=== PATIENT | male | born 1935 | race Caucasian/White ===

== ENCOUNTER → 2023-07-24 14:21 | Outpatient (REF) | payer OTHER, SELFPAY | LOC: HWRAD 14:21 | PROVIDERS: ATTENDING PHYSICIAN Nurse Practitioner Family | DX: J06.9 Acute upper respiratory infection, unspecified (principal) | CPT/HCPCS: 71046 ==

== ENCOUNTER 2023-09-24 16:42 | Inpatient (IN) | payer OTHER, SELFPAY ==
[2023-09-24 13:43] VITALS: BP 123/56; BMI 24.9
[2023-09-24 14:32] LABS: % Basophils 0.3 % (0-2); % Immature Granulocytes 0.5 % (0-0.5); % Lymphocytes 15.8 % (20.5-51.1); % Monocytes 7.7 % (1.7-9.3); % Neutrophils 74.7 % (42.2-75.2); Absolute Eosinophils 0.1 10^3/uL (0-0.7); Absolute Immature Granulocytes 0.1 10^3/uL (0-0.05); Absolute Lymphocytes 1.7 10^3/uL (1.2-3.4); Absolute Monocytes 0.9 10^3/uL (0.1-0.6); Absolute Neutrophils 8.3 10^3/uL (1.4-6.5); Hematocrit 33.5 % (39.0-52.0); Hemoglobin 10.9 g/dL (13.0-18.0); Mean Corp Hgb Conc. 32.5 g/dL (33.0-37.0); Mean Corpuscular Volume 83.1 fL (80.0-94.0); Mean Platelet Volume 9.5 fL (7.4-10.4); Nucleated Red Blood Cells % 0 % (-); Platelet Count 239 10^3/uL (130-400); Red Blood Cell Count 4.03 10^6/uL (4.70-6.10); Red Cell Dist. Width 16.4 % (11.5-14.5)
[2023-09-24 14:47] LABS: ALT (SGPT) 12 U/L (0-50); AST (SGOT) 16 U/L (17-59); Albumin 3.9 g/dl (3.5-5.0); Alkaline Phosphatase 69 U/L (38-126); Blood Urea Nitrogen 19 mg/dl (9-20); Calcium 8.8 mg/dl (8.4-10.2); Carbon Dioxide 25 mmol/L (22-30); Chloride 99 mmol/L (98-107); Estimated Creatinine Clearance 79 ml/min; Glucose 208 mg/dl (70-99); Potassium 4.3 mmol/L (3.5-5.1); Sodium 136 mmol/L (135-145); Total Bilirubin 0.9 mg/dl (0.2-1.3); Total Protein 6.3 g/dl (6.3-8.2); eGFR > 60.00
[2023-09-24 14:52] LABS: COVID-19 Antigen Negative (Negative)
[2023-09-24 14:53] LABS: NT-proBNP 1080 pg/ml
[2023-09-24 15:00] VITALS: BP 107/92
--- NOTE | 2023-09-24 15:25 | ED.GENMED ---
History of Present Illness
General
Chief Complaint: Breathing Problem
Source: patient, ambulance crew and [facility]
Exam Limitations: none
Time Seen by Provider: 09/24/23 15:21
Nursing documentation reviewed up to this point in time: agreed with
History of Present Illness
History of Present Illness:
Patient to ED with complaint of cough, SOB for the past few days. Today staff reports pulse ox 86%RA. No fever/chills. Placed on 2L NC by ems, pulse ox increased to 94%. Denies any cp/pressure. Reports thick mucous. Eatin/drinking/sleeping
normally.
Past History
Past History
ED Past Medical History: CAD, Cancer (Lung cancer 1997, skin cancer), COPD, HTN, Hypercholesterolemia, Hypothyroidism, Other (BPH, gout, nephrolithiasis, vitamin D deficiency, rosacea, urinary tract infection) and Other (Right internal carotid
artery stenosis mild left internal carotid artery stenosis 70%; hard of hearing)
ED Past Surgical History: Appendectomy (Age 25), Cardiac (TAVR December 2021), Orthopedic (Right rotator cuff repair) and Other (Right lobectomy with radiation 1997)
Social History
Tobacco: Former smoker
Alcohol: None
Drug: None
Personal:
Living: with family
Employment: Retired
Family History
Family History: Other (Reviewed and noncontributory)
Review of Systems
Review of Systems
Allergies reviewed?: Yes
All Other Systems: ROS reviewed and negative except as documented in HPI and ROS
Constitutional: Reports no symptoms
EENT: Reports no symptoms
Respiratory: Reports cough and trouble breathing
Cardiac: Reports no symptoms
ABD/GI: Reports no symptoms
: Reports no symptoms
Musculoskeletal: Reports no symptoms
Skin: Reports no symptoms
Neurological: Reports weakness
Psychiatric: Reports no symptoms
Phy Exam
General Physical Exam
General Presentation: mild distress
General age: appears stated age
General Skin: warm and dry
General Habitus: normal
General Mental: alert
Cardiovascular Exam
Cardiovascular Exam: regular rate/rhythm
Pulmonary Exam
Pulmonary Exam: chest non tender
Cough: coarse cough
Breath Sounds: Absent breath sounds: right upper and right lower
Gastrointestinal Exam
Gastrointestinal Exam: normal bowel sounds, non tender, soft and no organomegaly
Neurological Exam
Neurological Exam: alert, oriented x3 and CN II-XII intact
Musculoskeletal Exam
Musculoskeletal Exam: full ROM and neuro vasc intact
Skin Exam
Skin Exam: normal color, warm/dry and no rash
Psychiatric Exam
Psychiatric Exam: normal mood/affect
Scores
Heart Failure Risk
Heart Failure Risk Score: Not Applicable
Course
Orders/Labs/Results
Orders:
Orders
09/24/23 13:41
CR Chest - 2 Views Urgent
Comment:
Reason For Exam: shortness of breath
09/24/23 13:49
Comprehensive Metabolic Panel Urgent
NT-proBNP Urgent
09/24/23 13:51
COVID-19 Antigen Urgent
Source: Nasal Swab
Complete Blood Count/With Diff Urgent
Influenza A+B Rapid Molecular Urgent
BROCK Source: Nasal Swab
Specimen Description:
09/24/23 Dinner
2000 calorie (17 carb) Diabetic
At Your Request: Limited, Supervisor Carton [employer] Can Supply Required
Does patient need a safe tray?: No
09/24/23 15:46
Cefepime HCl [Maxipime] 2,000 mg IV NOW STA
09/24/23 16:07
Guaifenesin [Mucinex] 600 mg .ROUTE .STK-MED ONE
09/24/23 16:08
Guaifenesin [Mucinex] 600 mg PO NOW STA
09/24/23 16:24
Admit/Transfer Patient As Directed
Co-Sign Provider:
Level of Care: Inpatient admission
Assign to:: Medical/Surgical
Physician / Group: anabel
Diagnosis: sepsis pneumonia
Reason for Hospitalization: sepsis pneumonia
Expected length of stay greater than two midnights?: Yes
ELOS- Estimated Length of Stay in days: 2
I certify the patient meets the requirements for IP care: Yes
Code Status As Directed
Resuscitation Status: Full Code
09/24/23 16:27
Respiratory Culture/Gram Stain Urgent
BROCK Source: Sputum
Specimen Description:
09/24/23 17:08
0.9% Sodium Chloride 1000 ml [Nss] 1,000 ml IV 100 mls/hr
Acetaminophen [Tylenol] 650 mg PO Q4HPRN PRN
Dextrose 50%-Water [Dextrose 50% Syringe] 12.5 grams IV [id number] PRN
Docusate Sodium [Colace] 100 mg PO BIDPRN PRN
Glucagon [GlucaGen] 1 mg IM PRN PRN
Insulin Aspart Corrective Low [Novolog Flexpen-Low Resistance] See Protocol SC AC
Ipratropium/Albuterol Sulfate [Duoneb] 3 ml INH R Q4HPRN PRN
METFORMIN HCl [Glucophage] 850 mg PO BID@0800,1700
Melatonin 5 mg PO HSPRN PRN
Sennosides [Senokot] 17.2 mg PO DAILYPRN PRN
09/24/23 17:08
Activity As Directed
Activity Level: As Tolerated
Bedside Glucose Monitoring As Directed
Frequency: AC&HS
Additional Instructions:: Change to q6h if pt on TPN, tube feeding or not eating
Bladder Scan As Directed
Follow Bladder Retention/Intermittent Cath Algorithm?: Yes
PRN if no void in __ hours: 6
Frequency: Per Retention Algorithm
If Bladder Scan Result >: 400
then:: Straight cath
Straight Cath As Directed
Frequency: Per Retention Algorithm
Additional Instructions: straight cath as needed per acute urinary retention algorithm for 24 hrs
Additional Instructions: for bladder scan greater than 400 mL
Vital Signs As Directed
Frequency: Per unit guidelines
DX Deep Vein Thrombosis Video Routine
09/24/23 18:00
Azithromycin 500 mg/250 ml [Zithromax Infusion] 500 mg in 250 ml IV Q24H
09/24/23 20:00
Guaifenesin [Mucinex] 1,200 mg PO Q12
Heparin 5,000 units SC Q12
09/24/23 22:00
Atorvastatin [Lipitor] 10 mg PO HS
CefTRIAXone [Rocephin] 1,000 mg IV Q24H
Melatonin 5 mg PO HS
Trazodone [Desyrel] 50 mg PO HS
09/25/23 06:00
Complete Blood Count/With Diff IN AM
Comprehensive Metabolic Panel IN AM
Glycohemoglobin (HgbA1c) IN AM
Levothyroxine [Synthroid] 25 mcg PO DAILY @ 0600
09/25/23 08:00
Aspirin Low Dose EC [Aspir Low (Enteric Coated)] 81 mg PO DAILY
Cetirizine HCl [Zyrtec] 10 mg PO DAILY
Cholecalciferol (Vitamin D3) [VITAMIN D3 (cholecalciferol)] 50 mcg PO DAILY
Cyanocobalamin [Vitamin B-12] 1,000 mcg PO DAILY
Finasteride [Proscar] 5 mg PO DAILY
NIFEdipine EXTENDED RELEASE [Procardia Xl (Extended Release)] 30 mg PO DAILY
Pantoprazole [Protonix] 40 mg PO DAILY
Tamsulosin [Flomax] 0.4 mg PO DAILY
Abnormal Lab Results
09/24/23 09/24/23
13:49 13:51
WBC 11.0 H 10^3/uL
(4.8-10.8)
RBC 4.03 L 10^6/uL
(4.70-6.10)
Hgb 10.9 L g/dL
(13.0-18.0)
Hct 33.5 L %
(39.0-52.0)
MCHC 32.5 L g/dL
(33.0-37.0)
RDW 16.4 H %
(11.5-14.5)
Abs Immat Gran (auto) 0.1 H 10^3/uL
(0-0.05)
Absolute Neuts (auto) 8.3 H 10^3/uL
(1.4-6.5)
Absolute Monos (auto) 0.9 H 10^3/uL
(0.1-0.6)
Lymphocytes % 15.8 L %
(20.5-51.1)
Glucose 208 H mg/dl
(70-99)
AST 16 L U/L
(17-59)
09/24/23 13:51
09/24/23 13:49
Vital Signs
Initial and Last Documented VS:
Initial Vital Signs
Temp Pulse Resp BP Pulse Ox
97.8 F 111 20 123/56 92
09/24/23 13:43 09/24/23 13:43 09/24/23 13:43 09/24/23 13:43 09/24/23 13:43
Last Documented Vital Signs
Temp Pulse Resp BP Pulse Ox
97.3 F 99 16 132/70 96
09/24/23 17:36 09/24/23 22:55 09/24/23 22:55 09/24/23 17:36 09/24/23 22:55
*Radiology
Radiology exam reviewed: radiology read reviewed
*Pulse Oximetry
Patient hypoxic: yes
*Critical Care Note
Total Time (30-74mins, 75-104mins- exclusive of procedures): Not Applicable
Update Note
Update Note:
Patient to ED with complaint of cough, thick mucous, difficulty breathing for the past 2-3 days. Denies fever. CXR: Opacity within the right mid and lower lung diallo. Pneumonia vs atelectass vs lung carcinom. Pulse ox holding at 93% on 2L. Will
treat for pneumonia -symptomatic x 2-3 days, admit to hospitaist
ED Attending Note
-
Portions of this chart may have been created with voice recognition software.� Occasional wrong word or��sound alike� substitutions may have occurred due to the inherent limitations of voice recognition software.
Discharge Plan
Departure
Patient Disposition: Admit
Date of Disposition: 09/24/23
Time of Disposition: 15:49
Presentation/result/management discussed w/ accepting MD/DO: Hospitalist
Condition: Fair
Covid-19: Not Applicable
Discharge Problem:
Pneumonia
Interventions
Interventions:
*Risk Screen - Suicide Last Done: 09/24/23 13:43
*General Assessment Last Done: 09/24/23 13:43
*Neglect/Abuse Screening Last Done: 09/24/23 13:43
ED- Fall Risk Assessment Last Done: 09/24/23 13:43
*ED COVID-19 Vaccine History Last Done: 09/24/23 13:43
*Nursing Disposition Last Done: 09/24/23 16:51
ED- Cardiac Assessment Last Done: 09/24/23 13:43
ED- Pulmonary Assessment Last Done: 09/24/23 13:43
Discharge Date and Time
Discharge Date/Time: 09/24/23 17:06
[2023-09-24 16:00] VITALS: BP 119/63
[2023-09-24] MEDS: MUCINEX 600 MG PO (16:10)
[2023-09-24] MEDS: MAXIPIME 2000 MG IV (16:13)
--- NOTE | 2023-09-24 16:28 | HPS.HSE ---
Family Physician
-
Family Physician: Asaf Montes
Chief Complaint
-
cough, SOB
History of Present Illness
88-year-old male past medical history of prior CVA, B12 deficiency, moderate aortic stenosis s/p TAVR, CAD, hypertension, diabetes, hyperlipidemia, lung cancer status post right lobectomy, prostate cancer, GERD, insomnia, hypothyroidism, chronic
urinary retention presenting from [facility] for cough with thick mucus, shortness of breath for the past few days. Today staff noted pulse ox of 86% on room air. No fevers or chills. He was placed on 2 L of oxygen. Denies any chest pain or
pressure. Denies any nausea or vomiting or diarrhea. He has chronic lower extremity particularly of left foot which is not new.
Patient states he quit smoking 30 years ago and smoked a pack of cigarettes per day for 25 years prior to that. He denies alcohol use.
Medical History
Past Medical History
Past Medical History: Reports Other (prior CVA, B12 deficiency, moderate aortic stenosis s/p TAVR, CAD, hypertension, diabetes, hyperlipidemia, lung cancer status post right lobectomy, prostate cancer, GERD, insomnia, hypothyroidism, chronic
urinary retention)
Past Surgical History: Reports Other ( Appendectomy (Age 25), Cardiac (TAVR December 2021), Orthopedic (Right rotator cuff repair) and Other (Right lobectomy with radiation 1997))
Social History
Tobacco: Former Smoker
Alcohol: None
Drug: None
Family History
Family History: Not pertinent
Allergies / Home Medications
Allergies reflects when Allergies were last updated in [facility].
Home Medications with original date entered in [facility]
Allergy/Medication List:
Allergies
Allergy/AdvReac Type Severity Reaction Status Date / Time
finasteride Allergy Intermediate Unknown Verified 05/29/22 16:22
Home Medications
aspirin 81 mg tablet,delayed release 81 mg PO DAILY #30 tabs 06/12/22
atorvastatin 10 mg tablet 10 mg PO HS #30 tabs 06/12/22
cetirizine 10 mg tablet 10 mg PO DAILY #30 tabs 06/12/22
finasteride 5 mg tablet 5 mg PO DAILY #30 tabs 06/12/22
metformin 850 mg tablet 850 mg PO BID@0800,1700 #60 tabs 06/12/22
pantoprazole 40 mg tablet,delayed release 40 mg PO DAILY #30 tabs 06/12/22
tamsulosin 0.4 mg capsule 0.4 mg PO DAILY #30 caps 06/12/22
acetaminophen 325 mg tablet 650 mg PO Q4HPRN PRN mild pain 09/24/23
albuterol sulfate 90 mcg/actuation aerosol inhaler (Proventil HFA) 1 puff inhalation R Q4HPRN PRN sob 09/24/23
cholecalciferol (vitamin D3) 50 mcg (2,000 unit) tablet 50 mcg PO DAILY 09/24/23
cyanocobalamin (vitamin B-12) 1,000 mcg tablet 1,000 mcg PO DAILY 09/24/23
docusate sodium 100 mg capsule 100 mg PO BID PRN constipation 09/24/23
fluticasone propionate 50 mcg/actuation nasal spray,suspension 2 spray intranasal DAILY PRN mucus build up 09/24/23
guaifenesin 600 mg tablet, extended release 12 hr 600 mg PO BID 09/24/23
guaifenesin 600 mg tablet, extended release 12 hr 600 mg PO Q12H PRN acute cough 09/24/23
levothyroxine 25 mcg tablet 25 mcg PO DAILY 09/24/23
melatonin 5 mg tablet 5 mg PO HS 09/24/23
melatonin 5 mg tablet 5 mg PO HS PRN insomnia 09/24/23
nifedipine 30 mg tablet,extended release 24 hr 30 mg PO DAILY 09/24/23
sennosides 8.6 mg tablet (senna) 17.2 mg PO DAILYPRN PRN constipation 09/24/23
trazodone 50 mg tablet 50 mg PO HS 09/24/23
Review of Systems
-
History Source: Patient
A 12 point ROS was completed and negative except as noted: Yes
Constitutional: Reports No Symptoms
EENT: Reports No Symptoms
Respiratory: Reports See HPI
Cardiac: Reports No Symptoms
Abdomen/GI: Reports No Symptoms
: Reports No Symptoms
Musculoskeletal: Reports No Symptoms
Skin: Reports No Symptoms
Neurological: Reports No Symptoms
Endocrine: Reports No Symptoms
Hematologic/Lymphatic: Reports No Symptoms
Psych: Reports No Symptoms
Physical Exam
Vital Signs
Vital Signs
Temp Pulse Resp BP Pulse Ox
97.8 F 100 19 107/92 91
09/24/23 13:43 09/24/23 15:30 09/24/23 15:30 09/24/23 15:00 09/24/23 15:30
Physical Exam
General: Well Developed, Well Nourished and No Apparent Distress
HEENT: NormoCephalic, Moist mucous membranes and Atraumatic
Respiratory: Rhonchi (bilaterally)
Cardiac: S1/S2 and Regular Rhythm; No Murmur or Rub
GI: Soft, Non Tender, Non Distended and Normal Bowel Sounds; No Organomegaly
Rectal: Deferred by Provider
Musculoskeletal: No Clubbing, No Cyanosis and No Edema
Skin: No Rash
Neuro: Nonfocal/grossly intact
Laboratory Results
-
09/24/23 13:51
09/24/23 13:49
Laboratory Results
Total Bilirubin 0.9 mg/dl (0.2-1.3) 09/24/23 13:49
AST 16 U/L (17-59) L 09/24/23 13:49
ALT 12 U/L (0-50) 09/24/23 13:49
Alkaline Phosphatase 69 U/L (38-126) 09/24/23 13:49
Data Reviewed
-
Lab Data: Labs Reviewed by me
Old Records: Reviewed
Impression/Plan
-
IMPRESSION:
PLAN:
# Sepsis (leukocytosis, tachycardia, tachypnea) secondary to community-acquired pneumonia
-Coarse rhonchi bilaterally on examination
-COVID, influenza negative
-Chest x-ray shows diffuse volume loss of right hemithorax, hazy opacity in the right mid and lower lung zone which represent pneumonia/atelectasis,/underlying lung carcinoma, calcified pleural plaque of the right lung base consistent with
asbestosis related pleural disease
-IV fluids
-Check sputum culture
-Check blood cultures
-Ceftriaxone/azithromycin
-DuoNebs every 6 hours as needed
-Consider steroids if no improvement with IV antibiotics
-Guaifenesin
Former smoker
Aortic stenosis status post TAVR
Coronary artery disease
-Continue aspirin
Essential hypertension
-Continue nifedipine
Type 2 diabetes
-Continue metformin
-Insulin sliding scale
Hyperlipidemia
-Continue statin
Lung cancer status post right lobectomy/chemotherapy
Prostate cancer
Chronic urinary retention
-Continue finasteride, tamsulosin
-Bladder scan protocol
-Monitor for voiding issues
History of prior CVA
B12 deficiency
-Continue B12
Chronic normocytic anemia
-Hemoglobin trending down since May 2022
-Continue to monitor
GERD
-Continue Protonix
Hypothyroidism
-Continue levothyroxine
Insomnia
-Continue melatonin, trazodone
Full code
DVT prophylaxis�heparin
Diabetic diet
[2023-09-24 17:36] VITALS: BP 132/70
[2023-09-24 17:37] VITALS: BMI 24.2
[2023-09-24] MEDS: NSS 1000 IV (17:42)
[2023-09-24] MEDS: GLUCOPHAGE 850 MG PO (18:04)
[2023-09-24] MEDS: ZITHROMAX INFUSION 250 IV (18:04)
[2023-09-24 18:26] LABS: Glucose - Point of Care 170 mg/dl (70-99)
--- NOTE | 2023-09-24 18:34 | PTCARENOTE ---
Patient states, 'I have trouble swallowing. I eat soft food with no lumps or I start coughing.' Patient was seeing a speech therapist in the past and would like to resume speech therapy, due to recent aspiration at his daughters house. Speech eval
ordered per nursing protocol.
[2023-09-24] MEDS: NOVOLOG FLEXPEN-LOW RESISTANCE SC (19:16)
[2023-09-24 21:14] LABS: Glucose - Point of Care 136 mg/dl (70-99)
[2023-09-24] MEDS: HEPARIN 5000 UNITS SC (21:49)
[2023-09-24] MEDS: LIPITOR 10 MG PO (21:49)
[2023-09-24] MEDS: MUCINEX 1200 MG PO (21:49)
[2023-09-24] MEDS: DESYREL 50 MG PO (21:49)
[2023-09-24] MEDS: MELATONIN 5 MG PO (21:50)
[2023-09-24] MEDS: ROCEPHIN 1000 MG IV (21:50)
[2023-09-24] MEDS: STERILE WATER FOR INJECTION 10 ML IV (21:50)
[2023-09-24] MEDS: DUONEB 3 ML INH (22:48)
[2023-09-24 23:03] VITALS: BP 132/62
[2023-09-25] MEDS: NSS 1000 IV (04:12)
[2023-09-25] MEDS: DUONEB 3 ML INH ×2 (05:43→08:27)
[2023-09-25 06:00] VITALS: BMI 25.8
[2023-09-25] MEDS: SYNTHROID 25 MCG PO (06:31)
[2023-09-25 07:37] LABS: % Basophils 0.3 % (0-2); % Eosinophils 0.9 % (0-6); % Immature Granulocytes 0.6 % (0-0.5); % Lymphocytes 13.2 % (20.5-51.1); % Monocytes 9.7 % (1.7-9.3); % Neutrophils 75.3 % (42.2-75.2); Absolute Eosinophils 0.1 10^3/uL (0-0.7); Absolute Lymphocytes 0.9 10^3/uL (1.2-3.4); Absolute Monocytes 0.6 10^3/uL (0.1-0.6); Hematocrit 27.4 % (39.0-52.0); Hemoglobin 9.1 g/dL (13.0-18.0); Mean Corp Hgb Conc. 33.2 g/dL (33.0-37.0); Mean Corpuscular Hgb 27.2 pg (27.0-31.0); Mean Corpuscular Volume 81.8 fL (80.0-94.0); Mean Platelet Volume 9.3 fL (7.4-10.4); Nucleated Red Blood Cells % 0 % (-); Platelet Count 181 10^3/uL (130-400); Red Blood Cell Count 3.35 10^6/uL (4.70-6.10); Red Cell Dist. Width 16.4 % (11.5-14.5); White Blood Cell Count 6.6 10^3/uL (4.8-10.8)
[2023-09-25 07:41] LABS: Glucose - Point of Care 142 mg/dl (70-99)
--- NOTE | 2023-09-25 07:41 | PTCARENOTE ---
Pt aaox3,forgetful & anxious at times. on bedalarm.On oxygen at 4lit, pt MARSH.pulse oxy 93-98.TELE MARKETING EXECUTIVE strike on machine operator made aware of it.Ok to stop IV fluids as pt pt has wheezing,crackles,unable to bring cough up.Pt was teached how to use Incentive spirometer
,sputum cup at bedside. Pt voided in the bathroom with 1 person assist. PRN breathing treatment was given to pt as needed. Plan of care continued.Pt continued on aspiration precautions. call denis in reach.No new orders at this time.
--- NOTE | 2023-09-25 07:42 | W.PN.HOSP.TC ---
Addendum entered and electronically signed by Helen Walters MD 09/25/23 14:59:
I personally performed a history and physical exam of the patient and discussed management with the resident. I reviewed the resident's note and agree with the documented findings and plan of care HPI/CC except change in documentation
88-year-old male with hypoxia from [facility].
CVS: S1-S2 normal
Chest: coarse BS, Gurgling sound on upper airways.
Abdomen: Soft, NT / Bowel sounds present
Extremities: edema more on the left
SCOURING TRAIN OPERATOR: Non focal exam
# Sepsis secondary to pneumonia
COVID influenza negative
Chest x-ray reviewed by me- with opacity in the right mid and lower lung zone
Placed on Zithromax and ceftriaxone
Speech evaluation -patient is at high risk for aspiration.
Check blood cultures and sputum cultures
DuoNebs
Mucolytic's
Spoke to patient's daughter who is a nurse here. Reviewed aspiration risk. She is aware that he is aspirating but would like him to have soft diet. Her goal is to keep comfortable as well as he can enjoy his life. She is okay with him being a
DNR. Aware that he is going to recurrently aspirate and implications of that.
# LE edema- USS
# Anemia-check iron and B12
# Aortic stenosis status post TAVR
# Coronary artery disease-continue aspirin, statin
# Hypertension-continue nifedipine
# Type 2 diabetes-continue metformin, Accu-Cheks and sliding scale
# Hyperlipidemia-continue statin
# Lung cancer with history of right lobectomy and chemotherapy
# History of prostate cancer
Chronic urinary retention on tamsulosin and finasteride
Bladder scan as needed and monitor for any voiding problems
# History of CVA-Right [place]
# B12 deficiency-continue replacement
# Hypothyroidism (Synthroid
# Insomnia-continue melatonin and trazodone
# GERD-continue PPI
# Chronic RBBB
# DVT prophylaxis-heparin subcutaneous
# CODE STATUS was addressed with daughter and patient made a DNR.
Goal is to treat aspiration pneumonia and get patient better. Daughter requested speech therapy to teach patient's techniques for better eating and swallow to prevent aspiration.
D/W Speech therapist.
Original Note:
Today's Communication/Plan
-
Continue antibiotics
IV fluids
Assessment / Plan
Assessment / Plan
# Sepsis (leukocytosis, tachycardia, tachypnea) secondary to community-acquired pneumonia
-Coarse rhonchi bilaterally on examination
-COVID, influenza negative
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
asbestosis related pleural disease
-Continue IV fluids
-Check sputum culture when possible
-Blood cultures pending
-Ceftriaxone/azithromycin
-DuoNebs every 6 hours as needed
-Consider steroids if no improvement with IV antibiotics
-Guaifenesin
-Acapella device
Dysphagia:
Speech therapy evaluation, aspiration risk
-Will get video swallow study
-Add metronidazole for possible aspiration pneumonia
-Sputum culture
Chronic lower extremity edema
Left> right
-Left lower extremity Doppler
Former smoker
Aortic stenosis status post TAVR
Coronary artery disease
-Continue aspirin
Essential hypertension
-Continue nifedipine
Type 2 diabetes
-Continue metformin
-Insulin sliding scale
Hyperlipidemia
-Continue statin
Lung cancer
status post right lobectomy/chemotherapy
Prostate cancer
Chronic urinary retention
-Continue finasteride, tamsulosin
-Bladder scan protocol
-Monitor for voiding issues
History of prior CVA
B12 deficiency
-Continue B12
Chronic normocytic anemia
-Hemoglobin trending down since May 2022
-Continue to monitor
GERD
-Continue Protonix
Hypothyroidism
-Continue levothyroxine
Insomnia
-Continue melatonin, trazodone
Full code
DVT prophylaxis�heparin
Diabetic diet
Anticipated Discharge: 24 - 48 hours
Subjective/Interval History
-
Date of Service: September 25, 2023
Significant cough. Difficulty clearing airway.
Objective Data
-
Labs:
Laboratory Results
09/25/23
07:11
WBC Pending
Hgb Pending
Hct Pending
Plt Count Pending
Sodium Pending
Potassium Pending
Chloride Pending
Carbon Dioxide Pending
BUN Pending
Creatinine Pending
Glucose Pending
Calcium Pending
Total Bilirubin Pending
AST Pending
ALT Pending
Alkaline Phosphatase Pending
Vital Signs:
Vital Signs
Temp Pulse Resp BP Pulse Ox
98.2 F 90 18 132/62 95
09/24/23 23:03 09/25/23 05:46 09/25/23 05:46 09/24/23 23:03 09/25/23 05:46
Review of Systems
-
History Source: Patient and Family
Constitutional: Denies Fever
EENT: Reports Other (dysphagia)
Respiratory: Reports Cough and Other (Difficulty clearing mucus)
Cardiac: Denies Chest Pain, Palpitations or Syncope
Abdomen/GI: Denies Abdominal Pain, Nausea, Vomiting, Diarrhea or Constipated
Musculoskeletal: Reports Edema (Bilateral lower extremity); Denies Muscle Pain
Neuro: Denies Dizzy or Headache
Physical Exam
-
General: Well Developed and Other (Uncomfortable, appears stated age)
HEENT: Normocephalic, Atraumatic, Moist Mucous Membranes and Other; Negative Thrush, Anicteric or Pharyngeal Erythema
Respiratory: Rhonchi (Severe diffuse rhonchi, bilaterally)
Cardiac: Other (Unable to assess due to severity of rhonchi)
GI: Soft, Nontender and Nondistended
Musculoskeletal: No Clubbing, No Cyanosis, Edema, Right Lower Extrem (Left > right) and Edema, Left Lower Extrem
Skin: Warm and Dry; Negative Rash, Ulcers or Lesions
Neuro: Awake and Alert
Psych: Calm
[2023-09-25 07:58] VITALS: BP 138/72
[2023-09-25 08:18] LABS: ALT (SGPT) < 10 U/L (0-50); AST (SGOT) 14 U/L (17-59); Albumin 2.9 g/dl (3.5-5.0); Alkaline Phosphatase 57 U/L (38-126); Blood Urea Nitrogen 16 mg/dl (9-20); Calcium 7.9 mg/dl (8.4-10.2); Carbon Dioxide 26 mmol/L (22-30); Chloride 103 mmol/L (98-107); Estimated Creatinine Clearance 90 ml/min; Glucose 135 mg/dl (70-99); Potassium 4.1 mmol/L (3.5-5.1); Sodium 134 mmol/L (135-145); Total Bilirubin 0.6 mg/dl (0.2-1.3); eGFR > 60.00
[2023-09-25 08:46] LABS: Glycohemoglobin (HgbA1c) 5.6 % (4.0-5.6)
[2023-09-25] MEDS: NOVOLOG FLEXPEN-LOW RESISTANCE SC (09:42)
[2023-09-25] MEDS: PROCARDIA XL (EXTENDED RELEASE) 30 MG PO (09:43)
[2023-09-25] MEDS: MUCINEX 1200 MG PO ×2 (09:43→21:32)
[2023-09-25] MEDS: FLOMAX 0.400000000000000022 MG PO (09:43)
[2023-09-25] MEDS: HEPARIN 5000 UNITS SC ×2 (09:43→21:33)
[2023-09-25] MEDS: PROTONIX 40 MG PO (09:43)
[2023-09-25] MEDS: VITAMIN D3 (cholecalciferol) 50 MCG PO (09:44)
[2023-09-25] MEDS: VITAMIN B-12 1000 MCG PO (09:44)
[2023-09-25] MEDS: ASPIR LOW (ENTERIC COATED) 81 MG PO (09:44)
[2023-09-25] MEDS: PROSCAR 5 MG PO (09:44)
[2023-09-25] MEDS: GLUCOPHAGE 850 MG PO ×2 (09:44→17:47)
[2023-09-25] MEDS: ZYRTEC 10 MG PO (09:44)
[2023-09-25 12:28] LABS: Glucose - Point of Care 173 mg/dl (70-99)
[2023-09-25 12:50] VITALS: BP 147/82; PULSE 105; O2SAT 95
[2023-09-25] MEDS: NOVOLOG FLEXPEN-LOW RESISTANCE 1 UNITS SC (12:57)
--- NOTE | 2023-09-25 14:00 | PTOTSP ---
SPEECH THERAPY SWALLOW EVALUATION:
Patient exhibits clinical signs of oropharyngeal dysphagia, likely chronic in patient with multiple predisposing dysphagia risk factors including prior CVA, lung cancer and Right lobectomy, GERD. Patient with documented oropharyngeal dysphagia
during prior VSE 06/05/2022, which noted 'no epiglottic inversion'. Currently with pneumonia in Right lung, suspicious for aspiration-related infection. Per RN, daughter reported chronic signs of aspiration at baseline. Given significant signs of
aspiration across textures at bedside, patient appears unsafe for oral diet at this time. Recommend NPO with non-oral medication, hydration, and nutrition if consistent with Goals of Care. Recommend VSE to further assess swallow physiology.
Discussed recommendations with RN Marilee, who reported that she had spoken to patient's daughter (an ICU nurse) earlier regarding RN's suspicions that patient may be aspirating. Marilee reported that patient's daughter is the POA and was very
understanding of the current situation; Daughter told RN that she knows patient is likely aspirating and they accept that. However, patient remains full code at this time. Discussed with Dr. Walters to consider speaking to daughter (who was not
there during evaluation) prior to VSE to determine if VSE is warranted/in line with patient/family wishes, or in the case that the daughter accepts risks associated with aspiration-related complications with oral diet, could forego the VSE; In this
case, Goals of Care would need to be addressed. Speech Therapy to follow pending patient/family Goals of Care.
RECOMMEND:
1) NPO with non-oral medication/hydration/nutrition if consistent with Goals of Care
2) Videofluoroscopic Swallowing Study if consistent with patient/family wishes
3) Speech Therapy to follow
[2023-09-25 15:00] VITALS: BP 122/52
[2023-09-25 15:56] LABS: Iron < 20 ug/dl (49-181); Total Iron Binding Capacity 227 ug/dl (261-462)
[2023-09-25] MEDS: FLAGYL 500 MG PO (17:47)
[2023-09-25] MEDS: ZITHROMAX INFUSION 250 IV (17:47)
[2023-09-25] MEDS: NOVOLOG FLEXPEN-LOW RESISTANCE 2 UNITS SC (17:49)
[2023-09-25] MEDS: FLUSH (NSS) 2 FLUSH IV (17:49)
[2023-09-25 17:50] LABS: Glucose - Point of Care 221 mg/dl (70-99)
[2023-09-25 18:04] LABS: Ferritin 73.3 ng/ml (17.9-464.0)
[2023-09-25 18:18] LABS: Vitamin B12 947 pg/ml (239-931)
[2023-09-25 21:29] LABS: Glucose - Point of Care 130 mg/dl (70-99)
[2023-09-25] MEDS: LIPITOR 10 MG PO (21:32)
[2023-09-25] MEDS: MELATONIN 5 MG PO (21:32)
[2023-09-25] MEDS: DESYREL 50 MG PO (21:32)
[2023-09-25] MEDS: STERILE WATER FOR INJECTION 10 ML IV (21:33)
[2023-09-25] MEDS: ROCEPHIN 1000 MG IV (21:33)
[2023-09-25 23:20] VITALS: BP 105/49
[2023-09-26] MEDS: FLAGYL PO (01:00)
[2023-09-26 06:00] VITALS: BMI 25.8
[2023-09-26] MEDS: SYNTHROID 25 MCG PO (06:14)
[2023-09-26 07:20] VITALS: BP 136/74
[2023-09-26] MEDS: NOVOLOG FLEXPEN-LOW RESISTANCE SC ×3 (07:35→16:27)
[2023-09-26 07:36] LABS: Glucose - Point of Care 134 mg/dl (70-99)
[2023-09-26 07:42] LABS: Hemoglobin 9.2 g/dL (13.0-18.0); Mean Corp Hgb Conc. 31.7 g/dL (33.0-37.0); Mean Corpuscular Hgb 26.9 pg (27.0-31.0); Mean Corpuscular Volume 84.8 fL (80.0-94.0); Mean Platelet Volume 9.6 fL (7.4-10.4); Platelet Count 188 10^3/uL (130-400); Red Blood Cell Count 3.42 10^6/uL (4.70-6.10); Red Cell Dist. Width 16.4 % (11.5-14.5)
[2023-09-26] MEDS: PROCARDIA XL (EXTENDED RELEASE) 30 MG PO (08:21)
[2023-09-26] MEDS: ASPIR LOW (ENTERIC COATED) 81 MG PO (08:22)
[2023-09-26] MEDS: MUCINEX 1200 MG PO ×2 (08:22→20:16)
[2023-09-26] MEDS: VITAMIN D3 (cholecalciferol) 50 MCG PO (08:22)
[2023-09-26 08:23] LABS: Blood Urea Nitrogen 17 mg/dl (9-20); Calcium 8.4 mg/dl (8.4-10.2); Carbon Dioxide 24 mmol/L (22-30); Chloride 104 mmol/L (98-107); Estimated Creatinine Clearance 90 ml/min; Glucose 118 mg/dl (70-99); Sodium 135 mmol/L (135-145); eGFR > 60.00
[2023-09-26] MEDS: FLOMAX 0.400000000000000022 MG PO (08:23)
[2023-09-26] MEDS: FLAGYL 500 MG PO ×3 (08:23→23:00)
[2023-09-26] MEDS: VITAMIN B-12 1000 MCG PO (08:23)
[2023-09-26] MEDS: GLUCOPHAGE 850 MG PO ×2 (08:23→16:11)
[2023-09-26] MEDS: PROSCAR 5 MG PO (08:23)
[2023-09-26] MEDS: PROTONIX 40 MG PO (08:23)
[2023-09-26] MEDS: ZYRTEC 10 MG PO (08:24)
[2023-09-26] MEDS: HEPARIN 5000 UNITS SC ×2 (08:24→20:17)
--- NOTE | 2023-09-26 09:57 | W.PN.HOSP.TC ---
Addendum entered and electronically signed by Helen Walters MD 09/27/23 13:43:
late documentation
I personally performed a history and physical exam of the patient and discussed management with the resident. I reviewed the resident's note and agree with the documented findings and plan of care HPI/CC yesterday
Exam with bilateral rales and oarse BS
Continue ABand wean O2
Original Note:
Today's Communication/Plan
-
Continue Abx
Assessment / Plan
Assessment / Plan
88-year-old male with history of hypertension lung cancer status post right lobectomy, prostate cancer, CAD, hypertension, CVA, hyperlipidemia, hypothyroid, dysphagia, who was brought in from [facility] with shortness of breath, cough with thick
mucus and hypoxia
# Sepsis (leukocytosis, tachycardia, tachypnea) secondary to community-acquired pneumonia
-Coarse rhonchi bilaterally on examination
-COVID, influenza negative
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
asbestosis related pleural disease.
Symptoms improving
-Blood culture x2: No growth in 24 hours
-Ceftriaxone/azithromycin
-DuoNebs every 6 hours as needed
-Consider steroids if no improvement with IV antibiotics
-Guaifenesin
-Acapella device, incentive spirometry
Dysphagia:
Speech therapy evaluation, aspiration risk
- Daughter (POA declined video swallow study)
-Metronidazole added for possible aspiration pneumonia
-Sputum culture: Many white blood cells, moderate mixed bacterial morphotypes
Chronic lower extremity edema
Left> right
-Left lower extremity Doppler: No evidence of DVT
-Compression Trevor wrap
Former smoker
Aortic stenosis status post TAVR
Coronary artery disease
-Continue aspirin
Essential hypertension
-Continue nifedipine
Type 2 diabetes
-Continue metformin
-Insulin sliding scale
Hyperlipidemia
-Continue statin
Lung cancer
status post right lobectomy/chemotherapy
Hx of prostate cancer
Chronic urinary retention
-Continue finasteride, tamsulosin
-Bladder scan protocol
-Monitor for voiding issues
History of prior CVA
B12 deficiency
-Continue B12
Chronic normocytic anemia
-Hemoglobin trending down since May 2022
-Continue to monitor
GERD
-Continue Protonix
Hypothyroidism
-Continue levothyroxine
Insomnia
-Continue melatonin, trazodone
CODE STATUS: DNR
DVT prophylaxis�heparin
Diabetic diet
Anticipated Discharge: Within 24 hours
Subjective/Interval History
-
Date of Service: September 26, 2023
Daughter (a retired nurse from ) is POA and declined swallow study, prefers soft foods for the patient. Upon POA's informed request, patient code status was changed to DNR [id number]
Pt reports some improvement in mucus in airway, SOB with little exertion + desaturation to mid 80s still present.
Objective Data
-
Labs:
Laboratory Results
09/26/23
07:09
WBC 6.0
Hgb 9.2 L
Hct 29.0 L
Plt Count 188
Sodium 135
Potassium 4.0
Chloride 104
Carbon Dioxide 24
BUN 17
Creatinine 0.6 L
Glucose 118 H
Calcium 8.4
Vital Signs:
Vital Signs
Temp Pulse Resp BP Pulse Ox
97.4 F 92 20 136/74 98
09/26/23 07:20 09/26/23 07:20 09/26/23 07:20 09/26/23 07:20 09/26/23 07:20
I&O
09/25/23 09/26/23 09/27/23
06:59 06:59 06:59
Intake Total 720 / 720
Balance 720 / 720
Review of Systems
-
History Source: Patient
Constitutional: Reports No Symptoms; Denies Fever, Night Sweats or Chills
EENT: Reports Other (difficulty swallowing)
Respiratory: Reports Cough and Trouble Breathing
Cardiac: Reports No Symptoms; Denies Chest Pain, Diaphoresis, Palpitations or Syncope
Abdomen/GI: Reports No Symptoms; Denies Abdominal Pain, Nausea, Vomiting, Diarrhea or Constipated
Genitourinary: Reports No Symptoms; Denies Dysuria
Musculoskeletal: Reports Edema (bilateral LE)
Neuro: Denies Dizzy, Headache or Lightheadedness
Hematologic / Lymphatic: Reports Swollen Glands
Physical Exam
-
General: No Apparent Distress and Comfortable
HEENT: Normocephalic, Atraumatic and Moist Mucous Membranes; Negative Pharyngeal Erythema, Neck Masses or Thyromegaly
Respiratory: Wheezes (scattered mild terminal wheeze) and Crackles (fine crackles in left lower lobe)
Cardiac: Regular Rhythm and S1/S2; Negative Murmur, Rub or Calf Tenderness
GI: Soft, Nontender and Nondistended
Musculoskeletal: No Clubbing, No Cyanosis, Edema, Right Lower Extrem and Edema, Left Lower Extrem
Skin: Warm and Dry
Neuro: Awake, Alert and Oriented
Psych: Calm
[2023-09-26 11:39] LABS: Glucose - Point of Care 142 mg/dl (70-99)
[2023-09-26 12:15] VITALS: PULSE 96; O2SAT 97
[2023-09-26 15:01] VITALS: BP 112/51
[2023-09-26] MEDS: DUONEB 3 ML INH ×2 (15:23→19:53)
[2023-09-26 16:19] LABS: Glucose - Point of Care 137 mg/dl (70-99)
--- NOTE | 2023-09-26 17:05 | CM ---
ANA attempted to speak with Beka, however he was sleeping both times I stopped by.
Call placed to his daughter, Shari, to complete IA and discuss discharge plans back to [facility] when he is medically ready. We spoke about his current need for oxygen and potential for need when he is discharged, and requirement that he would
need to be able to manage his own O2, as [facility] cannot assist with that. Shari is hopeful that he will improve to the point of not needing O2 at discharge, but feels that Beka would be capable of managing his O2 in the facility.
Plan: Return to [facility]; watch for O2 needs prior to discharge.
PCP: Víctor Lennon
Pharm: Medications managed by [facility]
[2023-09-26] MEDS: ZITHROMAX INFUSION 250 IV (17:38)
[2023-09-26] MEDS: LIPITOR 10 MG PO (20:24)
[2023-09-26] MEDS: MELATONIN 5 MG PO (20:24)
[2023-09-26] MEDS: DESYREL 50 MG PO (20:25)
[2023-09-26] MEDS: ROCEPHIN 1000 MG IV (21:15)
[2023-09-26] MEDS: STERILE WATER FOR INJECTION 10 ML IV (21:15)
[2023-09-26 21:44] LABS: Glucose - Point of Care 176 mg/dl (70-99)
[2023-09-26 23:27] VITALS: BP 102/46
[2023-09-27 03:55] LABS: Glucose - Point of Care 156 mg/dl (70-99)
[2023-09-27] MEDS: SYNTHROID 25 MCG PO (06:00)
[2023-09-27 07:11] LABS: Hematocrit 26.6 % (39.0-52.0); Hemoglobin 8.8 g/dL (13.0-18.0); Mean Corp Hgb Conc. 33.1 g/dL (33.0-37.0); Mean Corpuscular Hgb 27.2 pg (27.0-31.0); Mean Corpuscular Volume 82.4 fL (80.0-94.0); Mean Platelet Volume 9.9 fL (7.4-10.4); Platelet Count 212 10^3/uL (130-400); Red Blood Cell Count 3.23 10^6/uL (4.70-6.10); Red Cell Dist. Width 16.5 % (11.5-14.5); White Blood Cell Count 5.6 10^3/uL (4.8-10.8)
[2023-09-27 07:16] LABS: Glucose - Point of Care 148 mg/dl (70-99)
[2023-09-27 07:28] VITALS: BP 141/66
[2023-09-27 07:34] LABS: Blood Urea Nitrogen 21 mg/dl (9-20); Calcium 8.2 mg/dl (8.4-10.2); Carbon Dioxide 27 mmol/L (22-30); Chloride 103 mmol/L (98-107); Estimated Creatinine Clearance 90 ml/min; Glucose 128 mg/dl (70-99); Potassium 4.1 mmol/L (3.5-5.1); Sodium 136 mmol/L (135-145); eGFR > 60.00
[2023-09-27] MEDS: DUONEB 3 ML INH ×4 (07:51→19:12)
--- NOTE | 2023-09-27 08:18 | W.PN.HOSP.TC ---
Addendum entered and electronically signed by Helen Walters MD 09/27/23 13:42:
CVS: S1-S2 normal
Chest: coarse BS, and rales
Abdomen: Soft, NT / Bowel sounds present
Extremities: edema bilateral
COAL GASIFICATION TECHNICIAN: Non focal exam
# Sepsis secondary to pneumonia
COVID influenza negative
Chest x-ray reviewed by me- with opacity in the right mid and lower lung zone
Placed on Zithromax and ceftriaxone
Speech evaluation -patient is at high risk for aspiration.
All Cx negative
DuoNebs
Mucolytic's
Spoke to patient's daughter who is a nurse here. Reviewed aspiration risk. She is aware that he is aspirating but would like him to have soft diet. Her goal is to keep comfortable as well as he can enjoy his life. She is okay with him being a
DNR. Aware that he is going to recurrently aspirate and implications of that.
Wean oxygen as tolerated. Currently on 2 L of oxygen.
# Anemia-ASHLEY - IV iron ordered.
Hemoglobin discussed with patient's daughter. She does not want to pursue any invasive testing such as endoscopy or colonoscopy. Therefore heme test has been canceled.
# LE edema- USS neg for DVT
# Aortic stenosis status post TAVR
# Coronary artery disease-continue aspirin, statin
# Hypertension-continue nifedipine
# Type 2 diabetes-continue metformin, Accu-Cheks and sliding scale
# Hyperlipidemia-continue statin
# Lung cancer with history of right lobectomy and chemotherapy
# History of prostate cancer-Chronic urinary retention on tamsulosin and finasteride
# History of CVA-Right Thalamus
# B12 deficiency-continue replacement
# Hypothyroidism (Synthroid
# Insomnia-continue melatonin and trazodone
# GERD-continue PPI
# Chronic RBBB
# DVT prophylaxis-heparin subcutaneous
# CODE STATUS was addressed with daughter and patient made a DNR.
Discussed with nursing at bedside
Discussed with patient's daughter who is an RCF. Her goal is to decrease the requirements of oxygen and send him back to [facility]. She does not want any further invasive testing or workup for anemia such as GI workup.
Hopefully if doing well can be discharged back tomorrow.
Original Note:
Today's Communication/Plan
-
Abx, wean O2 as tolerated, follow CBC
Assessment / Plan
Assessment / Plan
88-year-old male with history of hypertension lung cancer status post right lobectomy, prostate cancer, CAD, hypertension, CVA, hyperlipidemia, hypothyroid, dysphagia, who was brought in from [facility] with shortness of breath, cough with thick
mucus and hypoxia
# Sepsis (leukocytosis, tachycardia, tachypnea) secondary to community-acquired pneumonia
-Coarse rhonchi bilaterally on examination
-COVID, influenza negative
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
asbestosis related pleural disease.
Symptoms improving
-Blood culture x2: No growth in 24 hours
-Ceftriaxone/azithromycin
-DuoNebs every 6 hours as needed
-Consider steroids if no improvement with IV antibiotics
-Guaifenesin
-Acapella device, incentive spirometry-Wean off O2 as tolerated
Dysphagia:
Speech therapy evaluation, aspiration risk
- Daughter (POA) declined video swallow study
-Metronidazole added for possible aspiration pneumonia
-Sputum culture: Many white blood cells, moderate mixed bacterial morphotypes
-Soft foods with aspiration precautions
Chronic lower extremity edema
Left> right
-Left lower extremity Doppler: No evidence of DVT
-Compression Trevor wrap
Former smoker
Aortic stenosis status post TAVR
Coronary artery disease
-Continue aspirin
Essential hypertension
-Continue nifedipine
Type 2 diabetes
-Continue metformin
-Insulin sliding scale
Hyperlipidemia
-Continue statin
Lung cancer
status post right lobectomy/chemotherapy
Hx of prostate cancer
Chronic urinary retention
-Continue finasteride, tamsulosin
-Bladder scan protocol
-Monitor for voiding issues
History of prior CVA
B12 deficiency
-Continue B12
Chronic normocytic anemia
-Hemoglobin trending down since May 2022. No obvious blood loss
-will check FOBT
GERD
-Continue Protonix
Hypothyroidism
-Continue levothyroxine
Insomnia
-Continue melatonin, trazodone
CODE STATUS: DNR
DVT prophylaxis�heparin
Diabetic diet
Anticipated Discharge: Within 24 hours
Subjective/Interval History
-
Date of Service: September 27, 2023
Objective Data
-
Labs:
Laboratory Results
09/27/23
06:16
WBC 5.6
Hgb 8.8 L
Hct 26.6 L
Plt Count 212
Sodium 136
Potassium 4.1
Chloride 103
Carbon Dioxide 27
BUN 21 H
Creatinine 0.6 L
Glucose 128 H
Calcium 8.2 L
Vital Signs:
Vital Signs
Temp Pulse Resp BP Pulse Ox
98.0 F 91 16 102/46 96
09/26/23 23:27 09/27/23 07:52 09/27/23 07:52 09/26/23 23:27 09/27/23 07:52
I&O
09/26/23 09/27/23 09/28/23
06:59 06:59 06:59
Intake Total 720 / 720 1090 / 1090
Balance 720 / 720 1090 / 1090
Review of Systems
-
History Source: Patient
Constitutional: Reports No Symptoms
Respiratory: Reports Cough and Trouble Breathing
Cardiac: Denies Chest Pain, Diaphoresis, Palpitations or Syncope
Abdomen/GI: Reports No Symptoms; Denies Abdominal Pain, Diarrhea or Constipated
Genitourinary: Reports No Symptoms; Denies Dysuria, Difficulty Voiding or Bleeding
Physical Exam
-
General: Well Developed
HEENT: Normocephalic and Atraumatic
Respiratory: Rhonchi (diffuse)
Cardiac: Regular Rhythm and S1/S2; Negative Murmur, Rub or Calf Tenderness
GI: Soft, Nontender, Nondistended and Normal Bowel Sounds
Genito-urinary: No Costovertebral Tender
Musculoskeletal: No Clubbing, No Cyanosis, Edema, Right Lower Extrem and Edema, Left Lower Extrem
Skin: Warm and Dry
Neuro: Awake, Alert and Oriented
Psych: Calm
[2023-09-27] MEDS: NOVOLOG FLEXPEN-LOW RESISTANCE SC ×2 (08:36→11:35)
[2023-09-27] MEDS: HEPARIN 5000 UNITS SC ×2 (08:44→20:05)
[2023-09-27] MEDS: FLOMAX 0.400000000000000022 MG PO (08:45)
[2023-09-27] MEDS: ZYRTEC 10 MG PO (08:45)
[2023-09-27] MEDS: PROCARDIA XL (EXTENDED RELEASE) 30 MG PO (08:45)
[2023-09-27] MEDS: VITAMIN D3 (cholecalciferol) 50 MCG PO (08:45)
[2023-09-27] MEDS: ASPIR LOW (ENTERIC COATED) 81 MG PO (08:46)
[2023-09-27] MEDS: PROTONIX 40 MG PO (08:46)
[2023-09-27] MEDS: FLAGYL 500 MG PO ×3 (08:46→23:08)
[2023-09-27] MEDS: GLUCOPHAGE 850 MG PO ×2 (08:46→17:15)
[2023-09-27] MEDS: MUCINEX 1200 MG PO ×2 (08:46→20:05)
[2023-09-27] MEDS: PROSCAR 5 MG PO (08:47)
[2023-09-27] MEDS: VITAMIN B-12 1000 MCG PO (08:47)
[2023-09-27 11:33] LABS: Glucose - Point of Care 133 mg/dl (70-99)
[2023-09-27] MEDS: FERRLECIT 110 MG IV (14:15)
[2023-09-27 15:39] VITALS: BP 123/59
[2023-09-27 16:40] LABS: Glucose - Point of Care 152 mg/dl (70-99)
[2023-09-27] MEDS: ZITHROMAX INFUSION 250 IV (17:15)
[2023-09-27] MEDS: NOVOLOG FLEXPEN-LOW RESISTANCE 1 UNITS SC (17:15)
[2023-09-27] MEDS: LIPITOR 10 MG PO (20:05)
[2023-09-27] MEDS: DESYREL 50 MG PO (20:05)
[2023-09-27] MEDS: MELATONIN 5 MG PO (20:06)
[2023-09-27] MEDS: ROCEPHIN 1000 MG IV (20:06)
[2023-09-27] MEDS: STERILE WATER FOR INJECTION 10 ML IV (20:07)
[2023-09-27 21:19] LABS: Glucose - Point of Care 192 mg/dl (70-99)
[2023-09-27 23:24] VITALS: BP 102/57
[2023-09-28 03:25] VITALS: BP 148/76
[2023-09-28] MEDS: SYNTHROID 25 MCG PO (05:15)
--- NOTE | 2023-09-28 06:06 | PTCARENOTE ---
Patient with increased O2 needs this morning after sitting on side of bed to use electric shaver after voiding in bathroom. SpO2 on 3L was 89%, pt stating he felt like he wasn't getting any oxygen, bumped O2 to 4L with no changes. Pt educated on
different breathing techniques. Pt now on 5L sating 92-94%. Patient now resting comfortably. Plan of care ongoing.
[2023-09-28 07:15] VITALS: BP 149/65
[2023-09-28] MEDS: DUONEB 3 ML INH ×4 (07:39→19:59)
[2023-09-28 07:59] LABS: Hematocrit 32.5 % (39.0-52.0); Hemoglobin 10.2 g/dL (13.0-18.0); Mean Corp Hgb Conc. 31.4 g/dL (33.0-37.0); Mean Corpuscular Hgb 26.8 pg (27.0-31.0); Mean Corpuscular Volume 85.5 fL (80.0-94.0); Mean Platelet Volume 9.3 fL (7.4-10.4); Platelet Count 252 10^3/uL (130-400); Red Cell Dist. Width 16.5 % (11.5-14.5); White Blood Cell Count 8.3 10^3/uL (4.8-10.8)
[2023-09-28 08:02] LABS: Glucose - Point of Care 151 mg/dl (70-99)
[2023-09-28 08:06] LABS: Blood Urea Nitrogen 22 mg/dl (9-20); Calcium 8.6 mg/dl (8.4-10.2); Carbon Dioxide 25 mmol/L (22-30); Chloride 104 mmol/L (98-107); Estimated Creatinine Clearance 90 ml/min; Glucose 152 mg/dl (70-99); Potassium 4.5 mmol/L (3.5-5.1); Sodium 137 mmol/L (135-145); eGFR > 60.00
--- NOTE | 2023-09-28 08:50 | W.PN.HOSP.TC ---
Addendum entered and electronically signed by Helen Walters MD 09/28/23 12:12:
I personally performed a history and physical exam of the patient and discussed management with the resident. I reviewed the resident's note and agree with the documented findings and plan of care HPI/CC.
CVS: S1-S2 normal
Chest:Coarse BS bilaterally
Abdomen: Soft, NT / Bowel sounds present
Extremities: No edema
# Sepsis secondary to pneumonia
Episode of aspiration and res distress this am- was on 5 L now back on 2 L
COVID influenza negative
Chest x-ray reviewed by me- with opacity in the right mid and lower lung zone
Placed on Zithromax and ceftriaxone,Flagyl
Speech evaluation -patient is at high risk for aspiration.
All Cx negative
DuoNebs
Mucolytic's
Spoke to patient's daughter who is a nurse here. Reviewed aspiration risk. She is aware that he is aspirating but would like him to have soft diet. Her goal is to keep comfortable as well as he can enjoy his life. She is okay with him being a
DNR. Aware that he is going to recurrently aspirate and implications of that.
Wean oxygen as tolerated. Currently on 2 L of oxygen.
Rpt CXR
Vest Rx
# Anemia-ASHLEY - IV iron ordered.
Hemoglobin discussed with patient's daughter. She does not want to pursue any invasive testing such as endoscopy or colonoscopy. Therefore heme test has been canceled.
# LE edema- USS neg for DVT
# Aortic stenosis status post TAVR
# Coronary artery disease-continue aspirin, statin
# Hypertension-continue nifedipine
# Type 2 diabetes-continue metformin, Accu-Cheks and sliding scale
# Hyperlipidemia-continue statin
# Lung cancer with history of right lobectomy and chemotherapy
# History of prostate cancer-Chronic urinary retention on tamsulosin and finasteride
# History of CVA-Right Thalamus
# B12 deficiency-continue replacement
# Hypothyroidism -Synthroid
# Insomnia-continue melatonin and trazodone
# GERD-continue PPI
# Chronic RBBB
# DVT prophylaxis-heparin subcutaneous
# CODE STATUS was addressed with daughter and patient made a DNR.
Discussed with nursing at bedside
Discussed with patient's daughter who is an RN
Original Note:
Today's Communication/Plan
-
Respiratory therapy
Assessment / Plan
Assessment / Plan
88-year-old male with history of hypertension lung cancer status post right lobectomy, prostate cancer, CAD, hypertension, CVA, hyperlipidemia, hypothyroid, dysphagia, who was brought in from [facility] with shortness of breath, cough with thick
mucus and hypoxia
# Sepsis (leukocytosis, tachycardia, tachypnea) secondary to community-acquired pneumonia
-Coarse rhonchi bilaterally on examination
-COVID, influenza negative
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
asbestosis related pleural disease.
Little to no improvement in symptoms
-Blood culture x2: No growth in 48 hours
-Complete azithromycin course, discontinue. Continue ceftriaxone.
-Respiratory therapy
-DuoNebs every 6 hours as needed
-Consider steroids if no improvement with IV antibiotics
-Guaifenesin
-Acapella device, incentive spirometry-Wean off O2 as tolerated
Dysphagia:
Speech therapy evaluation, aspiration risk
- Daughter (POA) declined video swallow study
-Metronidazole added for possible aspiration pneumonia
-Sputum culture: Many white blood cells, moderate mixed bacterial morphotypes
-Soft foods with aspiration precautions
Chronic lower extremity edema
Left> right
-Left lower extremity Doppler: No evidence of DVT
-Compression wraps
Former smoker
Aortic stenosis status post TAVR
Coronary artery disease
-Continue aspirin
Essential hypertension
-Continue nifedipine
Type 2 diabetes
-Continue metformin
-Insulin sliding scale
Hyperlipidemia
-Continue statin
Lung cancer
status post right lobectomy/chemotherapy
Hx of prostate cancer
Chronic urinary retention
-Continue finasteride, tamsulosin
-Bladder scan protocol
-Monitor for voiding issues
History of prior CVA
B12 deficiency
-Continue B12
Chronic normocytic anemia
-Hemoglobin trending down since May 2022. No obvious blood loss
-will check FOBT
GERD
-Continue Protonix
Hypothyroidism
-Continue levothyroxine
Insomnia
-Continue melatonin, trazodone
CODE STATUS: DNR
DVT prophylaxis�heparin
Diabetic diet
Anticipated Discharge: 24 - 48 hours
Subjective/Interval History
-
Date of Service: September 28, 2023
Pt 'had a bad night' due to worsening respiratory symptoms.
Objective Data
-
Labs:
Laboratory Results
09/28/23
07:30
WBC 8.3
Hgb 10.2 L
Hct 32.5 L
Plt Count 252
Sodium 137
Potassium 4.5
Chloride 104
Carbon Dioxide 25
BUN 22 H
Creatinine 0.6 L
Glucose 152 H
Calcium 8.6
Vital Signs:
Vital Signs
Temp Pulse Resp BP Pulse Ox
98.1 F 104 18 149/65 97
09/28/23 07:15 09/28/23 07:42 09/28/23 07:42 09/28/23 07:15 09/28/23 08:48
I&O
09/27/23 09/28/23 09/29/23
06:59 06:59 06:59
Intake Total 1090 / 1090 1020 / 1020
Balance 1090 / 1090 1020 / 1020
Review of Systems
-
History Source: Patient
Constitutional: Reports No Symptoms
EENT: Reports Other (Dysphagia)
Respiratory: Reports Cough and Trouble Breathing
Cardiac: Reports No Symptoms; Denies Chest Pain, Diaphoresis, Palpitations or Syncope
Abdomen/GI: Reports No Symptoms; Denies Abdominal Pain, Nausea or Vomiting
Genitourinary: Reports No Symptoms
Neuro: Denies Dizzy or Headache
Physical Exam
-
General: Respiratory Distress
HEENT: Normocephalic, Atraumatic, Moist Mucous Membranes and Oxygen (3L O2 nasal cannula)
Respiratory: Clear to Auscultation and Rhonchi (Diffuse)
Cardiac: Regular Rhythm and S1/S2; Negative Murmur or Calf Tenderness
GI: Soft, Nontender, Nondistended and Normal Bowel Sounds
Musculoskeletal: No Clubbing, No Cyanosis, Edema, Right Lower Extrem and Edema, Left Lower Extrem
Skin: Warm and Dry
Neuro: Awake and Alert
Psych: Calm
[2023-09-28] MEDS: NOVOLOG FLEXPEN-LOW RESISTANCE 1 UNITS SC ×2 (08:52→17:36)
[2023-09-28] MEDS: HEPARIN 5000 UNITS SC ×2 (08:53→20:01)
[2023-09-28] MEDS: PROTONIX 40 MG PO (08:56)
[2023-09-28] MEDS: ASPIR LOW (ENTERIC COATED) 81 MG PO (08:57)
[2023-09-28] MEDS: ZYRTEC 10 MG PO (08:57)
[2023-09-28] MEDS: VITAMIN B-12 1000 MCG PO (08:57)
[2023-09-28] MEDS: PROCARDIA XL (EXTENDED RELEASE) 30 MG PO (08:57)
[2023-09-28] MEDS: MUCINEX 1200 MG PO ×2 (08:58→20:01)
[2023-09-28] MEDS: FLAGYL 500 MG PO ×3 (08:59→23:08)
[2023-09-28] MEDS: GLUCOPHAGE 850 MG PO ×2 (09:00→17:33)
[2023-09-28] MEDS: VITAMIN D3 (cholecalciferol) 50 MCG PO (09:00)
[2023-09-28] MEDS: FLOMAX 0.400000000000000022 MG PO (09:00)
[2023-09-28] MEDS: PROSCAR 5 MG PO (09:01)
[2023-09-28 12:15] LABS: Glucose - Point of Care 147 mg/dl (70-99)
[2023-09-28] MEDS: NOVOLOG FLEXPEN-LOW RESISTANCE SC (12:25)
[2023-09-28] MEDS: FERRLECIT 110 MG IV (13:16)
[2023-09-28 14:47] VITALS: BP 145/58
[2023-09-28 15:15] VITALS: BP 149/65
[2023-09-28 16:53] LABS: Glucose - Point of Care 164 mg/dl (70-99)
[2023-09-28] MEDS: ZITHROMAX INFUSION 250 IV (17:35)
[2023-09-28] MEDS: LIPITOR 10 MG PO (20:01)
[2023-09-28] MEDS: DESYREL 50 MG PO (20:02)
[2023-09-28] MEDS: ROCEPHIN 1000 MG IV (20:02)
[2023-09-28] MEDS: MELATONIN 5 MG PO (20:02)
[2023-09-28] MEDS: STERILE WATER FOR INJECTION 10 ML IV (20:02)
[2023-09-28 21:44] LABS: Glucose - Point of Care 139 mg/dl (70-99)
[2023-09-28 23:00] VITALS: BP 105/62
[2023-09-29] MEDS: SYNTHROID 25 MCG PO (04:58)
[2023-09-29] MEDS: DUONEB 3 ML INH ×4 (07:29→19:39)
[2023-09-29 07:30] VITALS: BP 156/73
[2023-09-29 07:37] LABS: Glucose - Point of Care 157 mg/dl (70-99)
[2023-09-29] MEDS: NOVOLOG FLEXPEN-LOW RESISTANCE 1 UNITS SC (08:26)
[2023-09-29] MEDS: FLAGYL 500 MG PO ×2 (08:27→17:02)
[2023-09-29] MEDS: PROTONIX 40 MG PO (08:27)
[2023-09-29] MEDS: PROSCAR 5 MG PO (08:27)
[2023-09-29] MEDS: VITAMIN B-12 1000 MCG PO (08:27)
[2023-09-29] MEDS: MUCINEX 1200 MG PO ×2 (08:28→20:18)
[2023-09-29] MEDS: FLOMAX 0.400000000000000022 MG PO (08:28)
[2023-09-29] MEDS: PROCARDIA XL (EXTENDED RELEASE) 30 MG PO (08:28)
[2023-09-29] MEDS: VITAMIN D3 (cholecalciferol) 50 MCG PO (08:29)
[2023-09-29] MEDS: HEPARIN 5000 UNITS SC ×2 (08:29→20:18)
[2023-09-29] MEDS: ZYRTEC 10 MG PO (08:29)
[2023-09-29] MEDS: ASPIR LOW (ENTERIC COATED) 81 MG PO (08:29)
[2023-09-29] MEDS: GLUCOPHAGE 850 MG PO ×2 (08:29→17:03)
--- NOTE | 2023-09-29 08:53 | W.PN.HOSP.TC ---
Addendum entered and electronically signed by Helen Walters MD 09/29/23 13:20:
I personally performed a history and physical exam of the patient and discussed management with the resident. I reviewed the resident's note and agree with the documented findings and plan of care HPI/CC.
CVS: S1-S2 normal
Chest:BS better B/L today
Abdomen: Soft, NT / Bowel sounds present
Extremities: mild LUE edema
# Sepsis secondary to pneumonia
COVID influenza negative
Chest x-ray reviewed by me- with opacity in the right mid and lower lung zone
Placed on Zithromax and ceftriaxone,Flagyl. Completed Z max
Speech evaluation -patient is at high risk for aspiration.
All Cx negative
DuoNebs
Mucolytic's
Spoke to patient's daughter who is a nurse here. Reviewed aspiration risk. She is aware that he is aspirating but would like him to have soft diet. Her goal is to keep comfortable as well as he can enjoy his life. She is okay with him being a
DNR. Aware that he is going to recurrently aspirate and implications of that.
Wean oxygen as tolerated. Currently on 2 L of oxygen.
Rpt CXR- better
Vest Rx
# Anemia-ASHLEY - IV iron ordered.
Hemoglobin discussed with patient's daughter. She does not want to pursue any invasive testing such as endoscopy or colonoscopy. Therefore heme test has been canceled.
# LE edema- USS neg for DVT
# Aortic stenosis status post TAVR
# Coronary artery disease-continue aspirin, statin
# Hypertension-continue nifedipine
# Type 2 diabetes-continue metformin, Accu-Cheks and sliding scale
# Hyperlipidemia-continue statin
# Lung cancer with history of right lobectomy and chemotherapy
# History of prostate cancer-Chronic urinary retention on tamsulosin and finasteride
# History of CVA-Right Thalamus
# B12 deficiency-continue replacement
# Hypothyroidism -Synthroid
# Insomnia-continue melatonin and trazodone
# GERD-continue PPI
# Chronic RBBB
# DVT prophylaxis-heparin subcutaneous
# CODE STATUS was addressed with daughter and patient made a DNR.
Discussed with nursing
D/W Daughter
She agrees no USS LUE
Original Note:
Today's Communication/Plan
-
ABX, vest therapy
Assessment / Plan
Assessment / Plan
88-year-old male with history of hypertension lung cancer status post right lobectomy, prostate cancer, CAD, hypertension, CVA, hyperlipidemia, hypothyroid, dysphagia, who was brought in from [facility] with shortness of breath, cough with thick
mucus and hypoxia
# Sepsis (leukocytosis, tachycardia, tachypnea) secondary to community-acquired pneumonia
-Coarse rhonchi bilaterally on examination
-COVID, influenza negative
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
asbestosis related pleural disease.
Little to no improvement in symptoms, likely due to decreased ability to clear airway. Repeat CXR 09/27: Improving pneumonia
-Blood culture x2: No growth to date
-Sputum culture: Usual respiratory latrell
-Complete azithromycin course, discontinued. Continue ceftriaxone.
-DuoNebs every 6 hours as needed. Guaifenesin, Acapella device, incentive spirometry, vest therapy
-Wean off O2 as tolerated
-Consider steroids if no improvement with IV antibiotics
Dysphagia:
Speech therapy evaluation, aspiration risk
- Daughter (POA) declined video swallow study
-Metronidazole added for possible aspiration pneumonia
-Sputum culture: Many white blood cells, moderate mixed bacterial morphotypes
-Soft foods with aspiration precautions
Chronic lower extremity edema
Left> right
-Left lower extremity Doppler: No evidence of DVT
-Compression wraps
Former smoker
Aortic stenosis status post TAVR
Coronary artery disease
-Continue aspirin
Essential hypertension
-Continue nifedipine
Type 2 diabetes
-Continue metformin
-Insulin sliding scale
Hyperlipidemia
-Continue statin
Lung cancer
status post right lobectomy/chemotherapy
Hx of prostate cancer
Chronic urinary retention
-Continue finasteride, tamsulosin
-Bladder scan protocol
-Monitor for voiding issues
History of prior CVA
B12 deficiency
-Continue B12
Chronic normocytic anemia
-Hemoglobin trending down since May 2022. No obvious blood loss
-Family declined FOBT or other invasive testing such as endoscopy or colonoscopy.
-IV iron repletion
GERD
-Continue Protonix
Hypothyroidism
-Continue levothyroxine
Insomnia
-Continue melatonin, trazodone
CODE STATUS: DNR
DVT prophylaxis�heparin
Diabetic diet
Anticipated Discharge: Within 24 hours
Subjective/Interval History
-
Date of Service: September 29, 2023
Pt seen having breakfast. Prolonged coughing fit during meal. He is anxious about being discharged, concerned about his safety outside hospital due to ongoing symptoms
Objective Data
-
Labs:
Laboratory Results
09/29/23
08:51
WBC Pending
Hgb Pending
Hct Pending
Plt Count Pending
Sodium Pending
Potassium Pending
Chloride Pending
Carbon Dioxide Pending
BUN Pending
Creatinine Pending
Glucose Pending
Calcium Pending
Vital Signs:
Vital Signs
Temp Pulse Resp BP Pulse Ox
97.9 F 96 20 156/73 93
09/29/23 07:30 09/29/23 08:28 09/29/23 07:34 09/29/23 08:28 09/29/23 08:22
I&O
09/28/23 09/29/23 09/30/23
06:59 06:59 06:59
Intake Total 1020 / 1020 840 / 840
Balance 1020 / 1020 840 / 840
Review of Systems
-
History Source: Patient
Respiratory: Reports Cough and Trouble Breathing
Cardiac: Reports No Symptoms
Physical Exam
-
General: Well Developed and Respiratory Distress
Respiratory: Rhonchi (Scattered), Crackles (Right mid and lower lobes) and Other (Labored respiration, weak cough)
Cardiac: Regular Rhythm and S1/S2; Negative Murmur or Rub
Musculoskeletal: Edema, Right Lower Extrem and Edema, Left Lower Extrem
Skin: Warm and Dry
Neuro: Awake, Alert and Oriented
Psych: Calm
[2023-09-29 10:55] LABS: Hematocrit 32.2 % (39.0-52.0); Hemoglobin 10.3 g/dL (13.0-18.0); Mean Corpuscular Hgb 26.8 pg (27.0-31.0); Mean Corpuscular Volume 83.6 fL (80.0-94.0); Mean Platelet Volume 9.1 fL (7.4-10.4); Platelet Count 282 10^3/uL (130-400); Red Blood Cell Count 3.85 10^6/uL (4.70-6.10); Red Cell Dist. Width 16.6 % (11.5-14.5); White Blood Cell Count 7.1 10^3/uL (4.8-10.8)
[2023-09-29 11:09] LABS: Blood Urea Nitrogen 19 mg/dl (9-20); Calcium 8.6 mg/dl (8.4-10.2); Carbon Dioxide 27 mmol/L (22-30); Chloride 103 mmol/L (98-107); Estimated Creatinine Clearance 77 ml/min; Glucose 163 mg/dl (70-99); Potassium 4.3 mmol/L (3.5-5.1); Sodium 138 mmol/L (135-145); eGFR > 60.00
[2023-09-29 11:33] LABS: Glucose - Point of Care 120 mg/dl (70-99)
[2023-09-29] MEDS: NOVOLOG FLEXPEN-LOW RESISTANCE SC ×2 (11:36→17:23)
[2023-09-29] MEDS: FLUSH (NSS) 1 FLUSH IV (13:45)
[2023-09-29] MEDS: FERRLECIT 110 MG IV (13:45)
[2023-09-29 15:15] VITALS: BP 139/65
--- NOTE | 2023-09-29 15:21 | CM ---
ANA met with Beka at bedside today to discuss his return to [facility] which is likely tomorrow. He had been on O2, however currently does not need it.
ANA will check documented status of O2 sat tomorrow to determine needs; Beka does not believe he will need it at discharge.
I spoke with Shari, Beka's daughter, to provide an update. She will take Beka home to [facility] tomorrow when he is ready.
Plan: Discharge to [facility]
Report: [phone]
[2023-09-29 15:38] LABS: Glucose - Point of Care 149 mg/dl (70-99)
[2023-09-29 16:28] VITALS: BP 139/65
--- NOTE | 2023-09-29 16:35 | PTCARENOTE ---
Pt AAO x3, very [place]; DAWKINS; OOB to chair/amulatory in [place] with resp therapy; uses walker, no c/o weakness/dizziness. VSS. Currently on room air- pulse ox 92%, pt with (+) slight MARSH but denies SOB; has frequent loose, non-productive cough; frequent
episodes of throat-clearing when eating; aspiration prec maintained. Abd soft, zhane IDDSI 6 diet. Voids in urinal without difficulty. Resting in chair at present, no c/o. Will continue to monitor.
--- NOTE | 2023-09-29 17:18 | PTCARENOTE ---
Pt c/o slight SOB after talking on phone; room air pulse ox 90%; placed back on nc 2lpm per pt request. Will continue to monitor.
[2023-09-29] MEDS: DESYREL 50 MG PO (21:25)
[2023-09-29] MEDS: MELATONIN 5 MG PO (21:25)
[2023-09-29] MEDS: LIPITOR 10 MG PO (21:25)
[2023-09-29] MEDS: ROCEPHIN 1000 MG IV (21:29)
[2023-09-29] MEDS: STERILE WATER FOR INJECTION 10 ML IV (21:30)
[2023-09-29 21:52] LABS: Glucose - Point of Care 149 mg/dl (70-99)
[2023-09-29 23:57] VITALS: BP 109/50
[2023-09-30] MEDS: FLAGYL 500 MG PO ×3 (00:49→16:32)
[2023-09-30] MEDS: SYNTHROID 25 MCG PO (04:36)
[2023-09-30 07:05] VITALS: BP 157/94
[2023-09-30] MEDS: DUONEB 3 ML INH ×2 (07:50→11:26)
[2023-09-30] MEDS: MUCINEX 1200 MG PO ×2 (08:23→21:06)
[2023-09-30] MEDS: FLOMAX 0.400000000000000022 MG PO (08:23)
[2023-09-30] MEDS: PROTONIX 40 MG PO (08:23)
[2023-09-30] MEDS: PROCARDIA XL (EXTENDED RELEASE) 30 MG PO (08:23)
[2023-09-30] MEDS: ASPIR LOW (ENTERIC COATED) 81 MG PO (08:24)
[2023-09-30] MEDS: ZYRTEC 10 MG PO (08:24)
[2023-09-30] MEDS: VITAMIN B-12 1000 MCG PO (08:24)
[2023-09-30] MEDS: PROSCAR 5 MG PO (08:24)
[2023-09-30] MEDS: VITAMIN D3 (cholecalciferol) 50 MCG PO (08:24)
[2023-09-30 08:25] LABS: Glucose - Point of Care 160 mg/dl (70-99)
[2023-09-30] MEDS: GLUCOPHAGE 850 MG PO ×2 (08:25→18:42)
[2023-09-30] MEDS: HEPARIN 5000 UNITS SC ×2 (08:25→21:08)
[2023-09-30] MEDS: NOVOLOG FLEXPEN-LOW RESISTANCE 1 UNITS SC ×2 (08:34→18:45)
--- NOTE | 2023-09-30 12:02 | W.PN.HOSP.TC ---
Addendum entered and electronically signed by Helen Walters MD 09/30/23 15:42:
I saw and examined the patient.
The MOTOR ADJUSTER or PA's note was reviewed and I agree with the note.
Comment:
CVS: S1-S2 normal
Chest: few rales
Abdomen: Soft, NT / Bowel sounds present
Extremities: No edema, normal pulses
MARBLEIZER: Non focal exam
personally performed a history and physical exam of the patient and discussed management with the resident. I reviewed the resident's note and agree with the documented findings and plan of care HPI/CC.
CVS: S1-S2 normal
Chest:BS better B/L today
Abdomen: Soft, NT / Bowel sounds present
Extremities: mild LUE edema
# Sepsis secondary to pneumonia
Acute hypoxic respiratory insufficiency due to above
COVID influenza negative
Chest x-ray reviewed by me- with opacity in the right mid and lower lung zone
Placed on Zithromax and ceftriaxone,Flagyl. Completed Z max
Speech evaluation -patient is at high risk for aspiration.
All Cx negative
DuoNebs
Mucolytic's
Spoke to patient's daughter who is a nurse here. Reviewed aspiration risk. She is aware that he is aspirating but would like him to have soft diet. Her goal is to keep comfortable as well as he can enjoy his life. She is okay with him being a
DNR. Aware that he is going to recurrently aspirate and implications of that.
Wean oxygen as tolerated. Currently on 1 L of oxygen.
Rpt CXR- better
Vest Rx
Home oxygen evaluation ordered patient needs oxygen for exertion.
# Anemia-ASHLEY - IV iron ordered.
Hemoglobin discussed with patient's daughter. She does not want to pursue any invasive testing such as endoscopy or colonoscopy. Therefore heme test has been canceled.
# LE edema- USS neg for DVT
# Aortic stenosis status post TAVR
# Coronary artery disease-continue aspirin, statin
# Hypertension-continue nifedipine
# Type 2 diabetes-continue metformin, Accu-Cheks and sliding scale
# Hyperlipidemia-continue statin
# Lung cancer with history of right lobectomy and chemotherapy
# History of prostate cancer-Chronic urinary retention on tamsulosin and finasteride
# History of CVA-Right Thal[place]
# B12 deficiency-continue replacement
# Hypothyroidism -Synthroid
# Insomnia-continue melatonin and trazodone
# GERD-continue PPI
# Chronic RBBB
# DVT prophylaxis-heparin subcutaneous
# CODE STATUS was addressed with daughter and patient made a DNR.
Discharge planning. Case management to arrange portable oxygen for patient at [facility]
D/W Daughter and updated
Original Note:
Today's Communication/Plan
-
Discharge planning
Assessment / Plan
Assessment / Plan
88-year-old male with history of hypertension lung cancer status post right lobectomy, prostate cancer, CAD, hypertension, CVA, hyperlipidemia, hypothyroid, dysphagia, who was brought in from [facility] with shortness of breath, cough with thick
mucus and hypoxia
# Sepsis (leukocytosis, tachycardia, tachypnea) secondary to community-acquired pneumonia
-COVID, influenza negative
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
asbestosis related pleural disease.
some improvement in symptoms, due to poor cough and decreased ability to clear airway. Repeat CXR 09/27: Improving pneumonia
-Blood culture x2: No growth to date
-Sputum culture: Usual respiratory latrell
-Complete azithromycin course, discontinued. Continue ceftriaxone
-DuoNebs every 6 hours as needed. Guaifenesin, Acapella device, incentive spirometry, vest therapy
-Wean off O2 as tolerated
Dysphagia:
Speech therapy evaluation, aspiration risk
- Daughter (POA) declined video swallow study
-Metronidazole added for possible aspiration pneumonia
-Sputum culture: Many white blood cells, moderate mixed bacterial morphotypes
-Soft foods with aspiration precautions
Chronic lower extremity edema
Left> right
-Left lower extremity Doppler: No evidence of DVT
-Compression wraps
Former smoker
Aortic stenosis status post TAVR
Coronary artery disease
-Continue aspirin
Essential hypertension
-Continue nifedipine
Type 2 diabetes
-Continue metformin
-Insulin sliding scale
Hyperlipidemia
-Continue statin
Lung cancer
status post right lobectomy/chemotherapy
Hx of prostate cancer
Chronic urinary retention
-Continue finasteride, tamsulosin
-Bladder scan protocol
-Monitor for voiding issues
History of prior CVA
B12 deficiency
-Continue B12
Chronic normocytic anemia
-Hemoglobin trending down since May 2022. No obvious blood loss
-Family declined FOBT or other invasive testing such as endoscopy or colonoscopy.
-IV iron repletion
GERD
-Continue Protonix
Hypothyroidism
-Continue levothyroxine
Insomnia
-Continue melatonin, trazodone
CODE STATUS: DNR
DVT prophylaxis�heparin
Diabetic diet
Anticipated Discharge: Today
Subjective/Interval History
-
Date of Service: September 30, 2023
Objective Data
-
Vital Signs:
Vital Signs
Temp Pulse Resp BP Pulse Ox
98.2 F 91 18 157/94 98
09/30/23 07:05 09/30/23 11:31 09/30/23 11:31 09/30/23 08:23 09/30/23 11:31
I&O
09/29/23 09/30/23 10/01/23
06:59 06:59 06:59
Intake Total 840 / 840 710 / 710
Output Total 250 / 250 500 / 500
Balance 840 / 840 460 / 460 -500 / -500
Review of Systems
-
History Source: Patient
Constitutional: Reports No Symptoms
Respiratory: Reports Cough and Trouble Breathing
Cardiac: Reports No Symptoms
Abdomen/GI: Reports No Symptoms
Physical Exam
-
General: Respiratory Distress
Respiratory: Rhonchi (scattered ) and Other (SOB with speech)
Cardiac: Regular Rhythm and S1/S2; Negative Murmur or Rub
Musculoskeletal: Negative No Clubbing, No Cyanosis or No Edema
Neuro: Awake, Alert and Oriented
Psych: Calm
[2023-09-30 12:16] LABS: Glucose - Point of Care 145 mg/dl (70-99)
[2023-09-30] MEDS: NOVOLOG FLEXPEN-LOW RESISTANCE SC (12:20)
[2023-09-30] MEDS: FERRLECIT 110 MG IV (14:16)
[2023-09-30 15:00] VITALS: BP 135/60
[2023-09-30 18:18] LABS: Glucose - Point of Care 156 mg/dl (70-99)
[2023-09-30] MEDS: MELATONIN 5 MG PO (21:13)
[2023-09-30] MEDS: DESYREL 50 MG PO (21:13)
[2023-09-30] MEDS: LIPITOR 10 MG PO (21:13)
[2023-09-30] MEDS: STERILE WATER FOR INJECTION 10 ML IV (21:28)
[2023-09-30] MEDS: ROCEPHIN 1000 MG IV (21:28)
[2023-09-30 21:58] LABS: Glucose - Point of Care 163 mg/dl (70-99)
[2023-09-30 23:49] VITALS: BP 120/67
[2023-10-01] MEDS: FLAGYL 500 MG PO ×3 (00:50→13:23)
[2023-10-01] MEDS: SYNTHROID 25 MCG PO (05:41)
[2023-10-01 07:25] LABS: Glucose - Point of Care 158 mg/dl (70-99)
[2023-10-01 07:30] VITALS: BP 148/80
[2023-10-01 08:22] LABS: Hematocrit 32.9 % (39.0-52.0); Hemoglobin 10.6 g/dL (13.0-18.0); Mean Corp Hgb Conc. 32.2 g/dL (33.0-37.0); Mean Corpuscular Hgb 27.2 pg (27.0-31.0); Mean Corpuscular Volume 84.4 fL (80.0-94.0); Platelet Count 267 10^3/uL (130-400); Red Cell Dist. Width 16.7 % (11.5-14.5); White Blood Cell Count 8.4 10^3/uL (4.8-10.8)
[2023-10-01 08:52] LABS: Blood Urea Nitrogen 16 mg/dl (9-20); Calcium 8.6 mg/dl (8.4-10.2); Carbon Dioxide 27 mmol/L (22-30); Chloride 103 mmol/L (98-107); Estimated Creatinine Clearance 90 ml/min; Glucose 132 mg/dl (70-99); Potassium 4.4 mmol/L (3.5-5.1); Sodium 138 mmol/L (135-145); eGFR > 60.00
[2023-10-01] MEDS: NOVOLOG FLEXPEN-LOW RESISTANCE 1 UNITS SC ×2 (09:06→12:46)
[2023-10-01] MEDS: PROTONIX 40 MG PO (09:07)
[2023-10-01] MEDS: MUCINEX 1200 MG PO (09:07)
[2023-10-01] MEDS: FLOMAX 0.400000000000000022 MG PO (09:07)
[2023-10-01] MEDS: PROCARDIA XL (EXTENDED RELEASE) 30 MG PO (09:07)
[2023-10-01] MEDS: ASPIR LOW (ENTERIC COATED) 81 MG PO (09:07)
[2023-10-01] MEDS: PROSCAR 5 MG PO (09:08)
[2023-10-01] MEDS: VITAMIN D3 (cholecalciferol) 50 MCG PO (09:08)
[2023-10-01] MEDS: HEPARIN 5000 UNITS SC (09:08)
[2023-10-01] MEDS: ZYRTEC 10 MG PO (09:08)
[2023-10-01] MEDS: VITAMIN B-12 1000 MCG PO (09:08)
[2023-10-01] MEDS: GLUCOPHAGE 850 MG PO (09:08)
--- NOTE | 2023-10-01 09:37 | W.PN.HOSP.TC ---
Today's Communication/Plan
-
Discharge planning
Assessment / Plan
Assessment / Plan
88-year-old male with history of hypertension lung cancer status post right lobectomy, prostate cancer, CAD, hypertension, CVA, hyperlipidemia, hypothyroid, dysphagia, who was brought in from [facility] with shortness of breath, cough with thick
mucus and hypoxia
# Sepsis (leukocytosis, tachycardia, tachypnea) secondary to community-acquired pneumonia
-COVID, influenza negative
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
asbestosis related pleural disease.
some improvement in symptoms, due to poor cough and decreased ability to clear airway. Repeat CXR 09/27: Improving pneumonia
-Blood culture x2: No growth to date
-Sputum culture: Usual respiratory latrell
-Complete azithromycin and ceftriaxone course, discontinued. Continue metronidazole for aspiration pneumonia
-DuoNebs every 6 hours as needed. Guaifenesin, Acapella device, incentive spirometry, vest therapy
-Wean off O2 as tolerated
Dysphagia:
Speech therapy evaluation, aspiration risk
- Daughter (POA) declined video swallow study
-Metronidazole added for possible aspiration pneumonia
-Sputum culture: Many white blood cells, moderate mixed bacterial morphotypes
-Soft foods with aspiration precautions
Chronic lower extremity edema
Left> right
-Left lower extremity Doppler: No evidence of DVT
-Compression wraps
Former smoker
Aortic stenosis status post TAVR
Coronary artery disease
-Continue aspirin
Essential hypertension
-Continue nifedipine
Type 2 diabetes
-Continue metformin
-Insulin sliding scale
Hyperlipidemia
-Continue statin
Lung cancer
status post right lobectomy/chemotherapy
Hx of prostate cancer
Chronic urinary retention
-Continue finasteride, tamsulosin
-Bladder scan protocol
-Monitor for voiding issues
History of prior CVA
B12 deficiency
-Continue B12
Chronic normocytic anemia
-Hemoglobin trending down since May 2022. No obvious blood loss
-Family declined FOBT or other invasive testing such as endoscopy or colonoscopy.
-IV iron repletion
GERD
-Continue Protonix
Hypothyroidism
-Continue levothyroxine
Insomnia
-Continue melatonin, trazodone
CODE STATUS: DNR
DVT prophylaxis�heparin
Diabetic diet
Anticipated Discharge: Today
Subjective/Interval History
-
Date of Service: October 01, 2023
Objective Data
-
Labs:
Laboratory Results
10/01/23
07:33
WBC 8.4
Hgb 10.6 L
Hct 32.9 L
Plt Count 267
Sodium 138
Potassium 4.4
Chloride 103
Carbon Dioxide 27
BUN 16
Creatinine 0.6 L
Glucose 132 H
Calcium 8.6
Vital Signs:
Vital Signs
Temp Pulse Resp BP Pulse Ox
98.0 F 107 18 148/80 98
10/01/23 07:30 10/01/23 09:07 10/01/23 07:30 10/01/23 09:07 10/01/23 09:05
I&O
09/30/23 10/01/23 10/02/23
06:59 06:59 06:59
Intake Total 710 / 710 110 / 110
Output Total 250 / 250 775 / 775
Balance 460 / 460 -665 / -665
Physical Exam
-
HEENT: Moist Mucous Membranes
Respiratory: Other (grunts with breathing, otherwise no wheezes, rhonchi or crackles)
Cardiac: Regular Rhythm and S1/S2; Negative Murmur, Rub or Calf Tenderness
Musculoskeletal: No Clubbing, No Cyanosis, Edema, Right Lower Extrem and Edema, Left Lower Extrem
Neuro: Awake, Alert and Oriented
Psych: Calm
[2023-10-01 11:47] LABS: Glucose - Point of Care 160 mg/dl (70-99)
--- NOTE | 2023-10-01 12:04 | VATNOTE ---
Attempted to redress pt's IV at this time. Pt declined IV redress stating he is leaving today, no order for discharge written yet. Will continue to monitor.
[2023-10-01 12:15] VITALS: BP 140/78
--- NOTE | 2023-10-01 14:43 | PTCARENOTE ---
Attempted to call Luiza Hay with report on DC'd pt- no one available to take report; message left for Ambreen (?sp) to call me for report @ [phone]. All DC instructions reviewed with/given to pt/daughter Shari.
[2023-10-01] MEDS: FERRLECIT IV (14:51)
--- NOTE | 2023-10-01 15:22 | CM ---
Addendum entered by Dolores Clemente 10/01/23 15:35:
Jennifer
fax#[phone]
Original Note:
TC from Darrel/Jennifer requesting VN consult.
Referral via [facility].
--- NOTE | 2023-10-01 16:22 | W.DCSUMMARY ---
Discharge Summary
Discharge Data
Date of Admission: 09/24/23
Date of Discharge: 10/01/23
-
Pending Results: No
Hospital Course
Discharge Physician: Helen Walters MD; Miriam Morin MD
Primary discharge diagnosis: Sepsis, pneumonia,
Chronic conditions prior to admission: Dysphagia, chronic lower extremity edema, aortic stenosis status post TAVR, coronary artery disease, essential hypertension, type 2 diabetes, hyperlipidemia, lung cancer, history of prostate cancer, chronic
urinary retention, history of prior CVA, B12 deficiency, chronic normocytic anemia, GERD, hypothyroidism, insomnia,
Hospital Course: 88-year-old male with above history who presented to ED from [facility] with shortness of breath, cough plus thick mucus times few days. At presentation he was hypoxic 86% on room air, tachycardic, with bilateral coarse rhonchi
on physical exam, and leukocytosis. Blood cultures were negative, sputum cultures showed usual respiratory latrell. Azithromycin and ceftriaxone was started, and little to no improvement of symptoms was observed. Given patient's history, low
suspicion for aspiration pneumonia. Speech therapy evaluation showed aspiration. However daughter (POA) declined video swallow, patient was put on IDDS diet for rest of stay. Metronidazole was added to antibiotic regimen, and aspiration measures
observed, with nebulizer treatment as needed, incentive spirometry/Acapella device. Significant improvement of symptoms were observed and repeat chest x-ray showed improving pneumonia. Patient was weaned down from 4 L O2 nasal cannula to 2L, and on
09/30 was discharged to [facility].
Relevant Data:
CXR 09/23: Diffuse volume loss of the right hemithorax. Hazy opacity within the right mid and lower lung zone. Findings may represent pneumonia, atelectasis, and/or underlying lung carcinoma. No significant pleural effusion is appreciated on the
lateral view. 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
CXR 09/27: Compared to the prior x-ray, mildly improved airspace disease within the right lung suggestive of improving pneumonia. No large pleural effusions or pneumothorax. Extensive postoperative changes within the right hemithorax with associated
mild chronic volume loss. Nonspecific mildly increased peripheral/reticular opacities within the left lung. No focal airspace disease within the left lung.
Lower extremity venous ultrasound 09/24: No evidence of deep venous thrombosis of the left lower extremity
Discharge Plan
-
Patient Disposition: Other
Discharge Diagnosis/Procedures: sepsis, pneumonia
Diet: 2 Gram Sodium
Additional Diets: Dysphagia level 6 diet; Soft, bite sized food
Activity: As tolerated
Driving Restrictions: No driving
Bathing Restrictions: None
Blood Work: B 12 level in 3 months
Activity Restrictions/Additional Instructions:
Upright for all meals. Multiple swallows, cough every few sips of ice to try and clear the larynx and airway. Stop B12, level over 900 now.
Instructions: Aspiration Pneumonia (DC)
Referrals:
Asaf Montes DO [Family Provider] - in less than 1 week
Additional Discharge Medication Instructions: Please follow-up with PCP within 2 weeks of discharge
Prescriptions:
New
ferrous sulfate [Iron (ferrous sulfate)] 325 mg (65 mg iron) tablet
325 mg PO DAILY Qty: 30 0RF
Continued
nifedipine 30 mg tablet extended release 24hr
30 mg PO DAILY
albuterol sulfate [Proventil HFA] 90 mcg/actuation Hfa Aerosol Inhaler
1 puff INHALATION R Q4HPRN PRN (Reason: sob)
fluticasone propionate 50 mcg/actuation [place],Suspension
2 spray INTRANASAL DAILY PRN (Reason: mucus build up)
melatonin 5 mg Tablet
5 mg PO HS PRN (Reason: insomnia)
melatonin 5 mg Tablet
5 mg PO HS
cholecalciferol (vitamin D3) 50 mcg (2,000 unit) Tablet
50 mcg PO DAILY
sennosides [senna] 8.6 mg tablet
17.2 mg PO DAILYPRN PRN (Reason: constipation)
acetaminophen 325 mg tablet
650 mg PO Q4HPRN PRN (Reason: mild pain)
trazodone 50 mg tablet
50 mg PO HS
levothyroxine 25 mcg tablet
25 mcg PO DAILY
docusate sodium 100 mg capsule
100 mg PO BID PRN (Reason: constipation)
cetirizine 10 mg Tablet
10 mg PO DAILY Qty: 30 0RF
aspirin 81 mg Tablet,Delayed Release (Dr/Ec)
81 mg PO DAILY Qty: 30 0RF
atorvastatin 10 mg Tablet
10 mg PO HS Qty: 30 0RF
metformin 850 mg Tablet
850 mg PO BID@0800,1700 Qty: 60 0RF
tamsulosin 0.4 mg Capsule
0.4 mg PO DAILY Qty: 30 0RF
finasteride 5 mg Tablet
5 mg PO DAILY Qty: 30 0RF
pantoprazole 40 mg Tablet,Delayed Release (Dr/Ec)
40 mg PO DAILY Qty: 30 0RF
Changed
guaifenesin 600 mg Tablet Extended Release 12hr
600 mg PO Q12H Qty: 0 0RF
Discontinued
cyanocobalamin (vitamin B-12) 1,000 mcg Tablet
1,000 mcg PO DAILY
guaifenesin 600 mg Tablet Extended Release 12hr
600 mg PO BID
Discharge Orders:
Discharge Patient (As Directed); Ordered 10/01/23
Ordered By: Miriam Morin
Discharge Date and Time
Discharge Date/Time: 10/01/23 14:35
Print Language: GEORGIAN
== END 2023-10-01 14:35 | DRG 871 ==
LOC: 4 EAST ACU 16:42
PROVIDERS: Emergency Medicine; Student in an Organized Health Care Education/Training Program; ADMITTING PHYSICIAN Hospitalist; ATTENDING PHYSICIAN Hospitalist; EMERGENCY PHYSICIAN Student in an Organized Health Care Education/Training Program; FAMILY PHYSICIAN Internal Medicine
DX: A41.9 Sepsis, unspecified organism (principal); J18.9 Pneumonia, unspecified organism; J44.0 Chronic obstructive pulmonary disease with (acute) lower respiratory infection; E11.9 Type 2 diabetes mellitus without complications; I25.10 Atherosclerotic heart disease of native coronary artery without angina pectoris; I10 Essential (primary) hypertension; E78.00 Pure hypercholesterolemia, unspecified; E53.8 Deficiency of other specified B group vitamins; K21.9 Gastro-esophageal reflux disease without esophagitis; E03.9 Hypothyroidism, unspecified; Z66 Do not resuscitate; I45.10 Unspecified right bundle-branch block; R33.8 Other retention of urine; G47.00 Insomnia, unspecified; I35.0 Nonrheumatic aortic (valve) stenosis; D64.89 Other specified anemias; D50.9 Iron deficiency anemia, unspecified; R60.0 Localized edema; R06.89 Other abnormalities of breathing; R09.02 Hypoxemia; R13.10 Dysphagia, unspecified; Z11.52 Encounter for screening for COVID-19; Z90.2 Acquired absence of lung [part of]; Z87.891 Personal history of nicotine dependence; Z86.73 Personal history of transient ischemic attack (TIA), and cerebral infarction without residual deficits; Z95.2 Presence of prosthetic heart valve; Z85.46 Personal history of malignant neoplasm of prostate; Z85.828 Personal history of other malignant neoplasm of skin; Z79.82 Long term (current) use of aspirin; Z79.84 Long term (current) use of oral hypoglycemic drugs; Z79.890 Hormone replacement therapy
CPT/HCPCS: 71046; 80048; 80053; 82306; 82607; 82728; 82962; 83036; 83540; 83550; 83880; 85025; 85027; 87040; 87070; 87205; 87502; 87811; 92526; 92610; 93971; 94640; 94669; 96374; 96375; 97116; 97162; 97166; 97535; 99285; J2916